=== PATIENT | female | born 1975 | race Caucasian/White ===

== ENCOUNTER 2016-06-30 23:46 | Emergency (ER) | payer OTHER ==
--- NOTE | 2016-07-01 01:53 | ED ---
Zhen Salomon Billy, scribed for Omar Mast MD on 07/01/16 at 0153 . Hypertension - HPI Summary HPI Summary: Patient is a 41 y/o female coming to [facility] for evaluation of one week of hypertension symptoms. Patient states that she has a history of gestational hypertension but has not had symptoms since her first . Today, she felt burning chest pain radiating to her left arm. She has no other symptoms at this time. - History of Current Complaint Chief Complaint: EDHypertension Stated Complaint: HIGH BLOOD PRESSURE [id number] Time Seen by Provider: 07/01/16 01:42 Hx Obtained From: Patient Onset/Duration: Started Hours Ago, Still Present Timing: Constant Aggravating Factor(s): Nothing Alleviating Factor(s): Nothing Associated Signs & Symptoms: Chest Pain - Allergies/Home Medications Allergies/Adverse Reactions: Allergies Allergy/AdvReac Type Severity Reaction Status Date / Time No Known Allergies Allergy Verified 06/30/16 23:55 PMH/Surg Hx/FS Hx/Imm Hx Endocrine/Hematology History: Denies: Hx Diabetes Cardiovascular History: Reports: Hx Hypertension - gestational hypertension Denies: Hx Myocardial Infarction History: Reports: Other Problems/Disorders - Ovarian cysts Infectious Disease History: No Infectious Disease History: Denies: Traveled Outside the [place] in Last 30 Days - Family History Known Family History: Positive: Hypertension - Social History Alcohol Use: None Hx Substance Use: No Substance Use Type: Reports: None Hx Tobacco Use: No Smoking Status (MU): Never Smoked Tobacco Review of Systems Negative: Fever Positive: Chest Pain, Other - hypertension All Other Systems Reviewed And Are Negative: Yes Physical Exam Triage Information Reviewed: Yes Vital Signs On Initial Exam: Initial Vitals Temp Pulse Resp BP Pulse Ox 98 F 83 18 162/85 100 06/30/16 23:53 06/30/16 23:53 06/30/16 23:53 06/30/16 23:53 06/30/16 23:53 Vital Signs Reviewed: Yes Appearance: Positive: Well-Appearing, No Pain Distress Skin: Positive: Warm Head/Face: Positive: Normal Head/Face Inspection Eyes: Positive: HUGO ENT: Positive: Hearing grossly normal Neck: Positive: Supple Respiratory/Lung Sounds: Positive: Clear to Auscultation, Breath Sounds Present Cardiovascular: Positive: RRR Abdomen Description: Positive: Nontender, Soft Bowel Sounds: Positive: Present Musculoskeletal: Positive: Strength/ROM Intact Neurological: Positive: Sensory/Motor Intact, Alert, Oriented to Person Place, Time, NV Bundle Intact Distally Psychiatric: Positive: Affect/Mood Appropriate Diagnostics - Vital Signs Vital Signs Temp Pulse Resp BP Pulse Ox 06/30/16 23:53 98 F 83 18 162/85 100 - Laboratory Result Diagrams: 07/01/16 02:05 07/01/16 01:46 Lab Statement: Any lab studies that have been ordered have been reviewed, and results considered in the medical decision making process. - EKG 0159 EKG Interpretation: NSR 68 bpm, no ST elevation Hypertension Course/Dx - Diagnoses Provider Diagnoses: Hypertension Discharge - Discharge Plan Condition: Stable Disposition: HOME Patient Education Materials: Hypertension (ED) Referrals: Adam Mena MD [Primary Care Provider] - The documentation as recorded by the Zhen peoples Billy accurately reflects the service I personally performed and the decisions made by , Omar Mast MD.
[2016-07-01 02:20] LABS: Hematocrit 44 % (35-47); Hemoglobin 15.1 g/dl (12.0-16.0); Mean Corpuscular HGB Conc 35 g/dl (31-36); Mean Corpuscular Hemoglobin 30 pg (27-31); Mean Corpuscular Volume 85 fL (80-97); Mean Platelet Volume 7 um3 (7.4-10.4); Red Cell Distribution Width 13 % (10.5-15); White Blood Count 12.9 10^3/ul (3.5-10.8)
[2016-07-01 02:32] LABS: Albumin 4.3 g/dL (3.2-5.2); BUN/Creatinine Ratio 18.9 (8-20); Calcium 9.5 mg/dL (8.6-10.3); EGFR African American 89.2 (>60); EGFR Non-African American 69.3 (>60); Potassium 3.7 mmol/L (3.5-5.0); Total Bilirubin 0.8 mg/dL (0.2-1.0); Total Protein 7.3 g/dL (6.4-8.9)
[2016-07-01 04:05] VITALS: BP 145/77
== END 2016-07-01 04:05 | disposition home or self-care (01) ==
LOC: ED 23:46
DX: I10 Essential (primary) hypertension (principal); R07.9 Chest pain, unspecified
CPT/HCPCS: 36415; 80053; 84484; 85025; 93005; 99283

== ENCOUNTER 2016-07-21 16:12 | Emergency (ER) | payer OTHER ==
[2016-07-21] MEDS ORDERED: Aspirin Low Dose CHEW TAB* 81 MG PO ONE (16:31)
--- NOTE | 2016-07-21 17:04 | RAD ---
Indication: Chest pain. Single frontal view of the chest performed at 1642 hours was reviewed. No prior study is available for comparison. No mediastinal shift is noted. Heart is of normal size and configuration. Lung lawrence appear clear. IMPRESSION: NO ACTIVE CARDIOPULMONARY DISEASE IS NOTED.
[2016-07-21 17:39] LABS: Hematocrit 45 % (35-47); Hemoglobin 15.6 g/dl (12.0-16.0); Mean Corpuscular HGB Conc 35 g/dl (31-36); Mean Corpuscular Hemoglobin 30 pg (27-31); Mean Corpuscular Volume 86 fL (80-97); Mean Platelet Volume 7 um3 (7.4-10.4); Red Blood Count 5.19 10^6/ul (4.0-5.4); Red Cell Distribution Width 13 % (10.5-15); White Blood Count 9.1 10^3/ul (3.5-10.8)
[2016-07-21 17:55] LABS: ALT 17 U/L (7-52); AST 15 U/L (13-39); Albumin 4.4 g/dL (3.2-5.2); Alkaline Phosphatase 48 U/L (34-104); Anion Gap 7 mmol/L (2-11); BUN/Creatinine Ratio 16.5 (8-20); Blood Urea Nitrogen 15 mg/dL (6-24); CO2 Carbon Dioxide 25 mmol/L (22-32); Calcium 9.5 mg/dL (8.6-10.3); Chloride 104 mmol/L (101-111); Creatine Kinase 88 U/L (10-223); EGFR African American 88.1 (>60); EGFR Non-African American 68.5 (>60); Globulin 3.3 g/dL (2-4); Glucose 109 mg/dL (70-100); Magnesium 2.3 mg/dL (1.9-2.7); Potassium 3.7 mmol/L (3.5-5.0); Sodium 136 mmol/L (133-145); Total Protein 7.7 g/dL (6.4-8.9)
[2016-07-21 18:04] LABS: TSH (Thyroid Stimulating Horm) 0.74 mcIU/mL (0.34-5.60)
[2016-07-21] MEDS ORDERED: Ketorolac INJ* 30 MG/ML 1 ML VIAL IV PUSH ONE (18:18)
[2016-07-21 19:06] VITALS: BP 119/68
--- NOTE | 2016-07-22 08:51 | ED ---
Carlie Salomon Matthew, scribed for Ernesto Johnson MD on 07/21/16 at 1805 . HPI Chest Pain - HPI Summary HPI Summary: A 41 y/o female presents to the ED with chest pain for the past week. The pain is described as tightness and rated 8/10 in severity. She's also having intermittent left arm pain that is described as sharp. The chest tightness is worse with exertion. She denies any SOB. The patient recently started a medication for HTN and the symptoms started afterwards, so she was started on a different medications, but continues to have the chest tightness. FHx of AFib. The patient does not smoke, no alcohol, and no drug use. - History of Current Complaint Chief Complaint: EDChestPainROMI Time Seen by Provider: 07/21/16 16:31 Hx Obtained From: Patient Onset/Duration: Started Weeks Ago, Atraumatic, Still Present Timing: Constant Initial Severity: Moderate Current Severity: Moderate Pain Intensity: 8 Pain Scale Used: 0-10 Numeric Chest Pain Location: Left Lateral Character: Tightness Aggravating Factor(s): Exertion Associated Signs and Symptoms: Positive: Other: - left arm pain. Negative: Shortness of Breath - Allergy/Home Medications Allergies/Adverse Reactions: Allergies Allergy/AdvReac Type Severity Reaction Status Date / Time No Known Allergies Allergy Verified 06/30/16 23:55 PMH/Surg Hx/FS Hx/Imm Hx Endocrine/Hematology History: Denies: Hx Diabetes Cardiovascular History: Reports: Hx Hypertension - gestational hypertension Denies: Hx Myocardial Infarction History: Reports: Other Problems/Disorders - Ovarian cysts Infectious Disease History: Denies: Traveled Outside the [place] in Last 30 Days - Family History Known Family History: Positive: Hypertension Family History: FHx of AFib - Social History Alcohol Use: None Hx Substance Use: No Substance Use Type: Reports: None Hx Tobacco Use: No Smoking Status (MU): Never Smoked Tobacco Review of Systems Constitutional: Negative Eyes: Negative ENT: Negative Positive: Chest Pain Respiratory: Negative Negative: Shortness Of Breath Gastrointestinal: Negative Genitourinary: Negative Positive: Myalgia - left arm pain described as sharp Neurological: Negative Psychological: Normal All Other Systems Reviewed And Are Negative: Yes Physical Exam - Summary Physical Exam Summary: VITAL SIGNS: Reviewed. GENERAL: Patient is a well developed and nourished female who is lying comfortable in the stretcher. Patient is not in any acute respiratory distress. HEAD AND FACE: No signs of trauma. No ecchymosis, hematomas or skull depressions. No sinus tenderness. EYES: PERRLA, EOMI x 2, No injected conjunctiva, no nystagmus. EARS: Hearing grossly intact. Ear canals and tympanic membranes are within normal limits. MOUTH: Oropharynx within normal limits. NECK: Supple, trachea is midline, no adenopathy, no JVD, no carotid bruit, no c- spine tenderness, neck with full ROM. CHEST: Symmetric, no tenderness at palpation LUNGS: Clear to auscultation bilaterally. No wheezing or crackles. CVS: Regular rate and rhythm, S1 and S2 present, no murmurs or gallops appreciated. ABDOMEN: Soft, non-tender. No signs of distention. No rebound no guarding, and no masses palpated. Bowel sounds are normal. EXTREMITIES: FROM in all major joints, no edema, no cyanosis or clubbing. NEURO: Alert and oriented x 3. No acute neurological deficits. Speech is normal and follows commands. SKIN: Dry and warm Triage Information Reviewed: Yes Vital Signs On Initial Exam: Initial Vitals Temp Pulse Resp BP Pulse Ox 98.3 F 98 18 157/88 100 07/21/16 16:15 07/21/16 16:15 07/21/16 16:15 07/21/16 16:15 07/21/16 16:15 Vital Signs Reviewed: Yes Diagnostics - Vital Signs Vital Signs Temp Pulse Resp BP Pulse Ox 07/21/16 16:15 98.3 F 98 18 157/88 100 - Laboratory Lab Results: Lab Results 07/21/16 07/21/16 07/21/16 Range/Units 17:15 17:15 17:15 WBC 9.1 (3.5-10.8) 10^3/ul RBC 5.19 (4.0-5.4) 10^6/ul Hgb 15.6 (12.0-16.0) g/dl Hct 45 (35-47) % MCV 86 (80-97) fL MCH 30 (27-31) pg MCHC 35 (31-36) g/dl RDW 13 (10.5-15) % Plt Count 231 (150-450) 10^3/ul MPV 7 L (7.4-10.4) um3 Neut % (Auto) 75.0 (38-83) % Lymph % (Auto) 18.4 L (25-47) % [place] % (Auto) 5.0 (1-9) % Eos % (Auto) 1.2 (0-6) % Baso % (Auto) 0.4 (0-2) % Absolute Neuts (auto) 6.8 (1.5-7.7) 10^3/ul Absolute Lymphs (auto) 1.7 (1.0-4.8) 10^3/ul Absolute Monos (auto) 0.5 (0-0.8) 10^3/ul Absolute Eos (auto) 0.1 (0-0.6) 10^3/ul Absolute Basos (auto) 0 (0-0.2) 10^3/ul Absolute Nucleated RBC 0.01 10^3/ul Nucleated RBC % 0.1 D-Dimer, Quantitative (Less Than 230) ng/mL Sodium 136 (133-145) mmol/L Potassium 3.7 (3.5-5.0) mmol/L Chloride 104 (101-111) mmol/L Carbon Dioxide 25 (22-32) mmol/L Anion Gap 7 (2-11) mmol/L BUN 15 (6-24) mg/dL Creatinine 0.91 (0.51-0.95) mg/dL Est GFR ( Amer) 88.1 (>60) Est GFR (Non-Af Amer) 68.5 (>60) BUN/Creatinine Ratio 16.5 (8-20) Glucose 109 H (70-100) mg/dL Lactic Acid 1.0 (0.5-2.0) mmol/L Calcium 9.5 (8.6-10.3) mg/dL Magnesium 2.3 (1.9-2.7) mg/dL Total Bilirubin 0.70 (0.2-1.0) mg/dL AST 15 (13-39) U/L ALT 17 (7-52) U/L Alkaline Phosphatase 48 (34-104) U/L Total Creatine Kinase 88 (10-223) U/L CK-MB (CK-2) 1.5 (0.6-6.3) ng/mL Troponin I 0.00 (<0.04) ng/mL B-Natriuretic Peptide ( - 100) pg/mL Total Protein 7.7 (6.4-8.9) g/dL Albumin 4.4 (3.2-5.2) g/dL Globulin 3.3 (2-4) g/dL Albumin/Globulin Ratio 1.3 (1-3) TSH 0.74 (0.34-5.60) mcIU/mL Beta HCG, Quant < 0.60 mIU/mL 07/21/16 07/21/16 Range/Units 17:15 17:15 WBC (3.5-10.8) 10^3/ul RBC (4.0-5.4) 10^6/ul Hgb (12.0-16.0) g/dl Hct (35-47) % MCV (80-97) fL MCH (27-31) pg MCHC (31-36) g/dl RDW (10.5-15) % Plt Count (150-450) 10^3/ul MPV (7.4-10.4) um3 Neut % (Auto) (38-83) % Lymph % (Auto) (25-47) % [place] % (Auto) (1-9) % Eos % (Auto) (0-6) % Baso % (Auto) (0-2) % Absolute Neuts (auto) (1.5-7.7) 10^3/ul Absolute Lymphs (auto) (1.0-4.8) 10^3/ul Absolute Monos (auto) (0-0.8) 10^3/ul Absolute Eos (auto) (0-0.6) 10^3/ul Absolute Basos (auto) (0-0.2) 10^3/ul Absolute Nucleated RBC 10^3/ul Nucleated RBC % D-Dimer, Quantitative < 200 (Less Than 230) ng/mL Sodium (133-145) mmol/L Potassium (3.5-5.0) mmol/L Chloride (101-111) mmol/L Carbon Dioxide (22-32) mmol/L Anion Gap (2-11) mmol/L BUN (6-24) mg/dL Creatinine (0.51-0.95) mg/dL Est GFR ( Amer) (>60) Est GFR (Non-Af Amer) (>60) BUN/Creatinine Ratio (8-20) Glucose (70-100) mg/dL Lactic Acid (0.5-2.0) mmol/L Calcium (8.6-10.3) mg/dL Magnesium (1.9-2.7) mg/dL Total Bilirubin (0.2-1.0) mg/dL AST (13-39) U/L ALT (7-52) U/L Alkaline Phosphatase (34-104) U/L Total Creatine Kinase (10-223) U/L CK-MB (CK-2) (0.6-6.3) ng/mL Troponin I (<0.04) ng/mL B-Natriuretic Peptide 42 ( - 100) pg/mL Total Protein (6.4-8.9) g/dL Albumin (3.2-5.2) g/dL Globulin (2-4) g/dL Albumin/Globulin Ratio (1-3) TSH (0.34-5.60) mcIU/mL Beta HCG, Quant mIU/mL Result Diagrams: 07/21/16 17:15 07/21/16 17:15 Lab Statement: Any lab studies that have been ordered have been reviewed, and results considered in the medical decision making process. - Radiology CXR Xray Interpretation: No Acute Changes - IMPRESSION: NO ACTIVE CARDIOPULMONARY DISEASE IS NOTED. Radiology Interpretation Completed By: Radiologist - EKG 16:20 Cardiac Rate: NL - 70 bpm EKG Rhythm: Sinus Rhythm EKG Interpretation: No ST elevation; T-Wave Inversion in III EKG Comparison: No Significant Change - 07/01/16 Chest Pain Course/Dx - Course Assessment/Plan: A 41 y/o female presents to the ED with chest pain for the past week. The pain is described as tightness and rated 8/10 in severity. She's also having intermittent left arm pain that is described as sharp. The chest tightness is worse with exertion. She denies any SOB. The patient recently started a medication for HTN and the symptoms started afterwards, so she was started on a different medications, but continues to have the chest tightness. FHx of AFib. The patient does not smoke, no alcohol, and no drug use. CBC WNL, CMP WNL except Glucose of 109. Troponin is 0.0. D-Dimer is less than 200. CXR shows no active cardiopulmonary disease. EKG shows sinus rhythm without ST elevation. Patient has a T-Wave inversion in III and similar to EKG on 07/01/16. The patient was given Toradol for the pain. The patient doesnt have any co- morbidity, and the pain is atypical. Therefore, I believe the patient has low suspicion for ACS. The patient is not tachycardiac or hypoxic so I have no suspicion for PE since the d-dimer is less than 200 as well. The patient will be discharged home to follow-up with her PCP. She is A&Ox3 and hemodynamically stable. I discussed all the findings and test results with the patient. Patient was instructed to return to the emergency room immediately if any of the symptoms return or worsens. Plan of care was discussed with the patient and understands and agrees. All questions were answered at patient satisfaction. There were no further complaints or concerns. Lung exam before discharge: CTA B /L. Good air exchange. No wheezing or crackles heard. CVS: S1 and S2 present. No murmurs appreciated. Patient is alert and oriented x 3. Patient is hemodynamically stable. Patient will be discharged home with follow up PCP in the next 2-3 days - Chest Pain Differential Diagnosis/HQI/PQRI: Acute ND, ACS, Angina, CHF, Chest Wall, GI Disease, Lower Respiratory Infection - Diagnoses Provider Diagnoses: Chest pain, atypical Discharge - Discharge Plan Condition: Stable Disposition: HOME Patient Education Materials: Chest Pain (ED) Referrals: King Williamson MD [Primary Care Provider] - 3 Days Additional Instructions: Please follow-up with your primary care physician. The documentation as recorded by the Carlie peoples Matthew accurately reflects the service I personally performed and the decisions made by , Ernesto Johnson MD.
== END 2016-07-21 19:00 | disposition home or self-care (01) ==
LOC: ED 16:12
DX: R07.89 Other chest pain (principal)
CPT/HCPCS: 36415; 71010; 80053; 82550; 82553; 83605; 83735; 83880; 84443; 84484; 84702; 85025; 85379; 93005; 99283; A9270-GY; J1885

== ENCOUNTER 2016-08-10 03:45 | Emergency (ER) | payer OTHER ==
[2016-08-10 04:45] LABS: Hematocrit 41 % (35-47); Hemoglobin 14.4 g/dl (12.0-16.0); Mean Corpuscular HGB Conc 35 g/dl (31-36); Mean Corpuscular Hemoglobin 30 pg (27-31); Mean Corpuscular Volume 86 fL (80-97); Mean Platelet Volume 7 um3 (7.4-10.4); Red Cell Distribution Width 13 % (10.5-15); White Blood Count 6.4 10^3/ul (3.5-10.8)
[2016-08-10 04:58] LABS: ALT 15 U/L (7-52); AST 13 U/L (13-39); Albumin 4.1 g/dL (3.2-5.2); Alkaline Phosphatase 42 U/L (34-104); Anion Gap 9 mmol/L (2-11); BUN/Creatinine Ratio 19.3 (8-20); Blood Urea Nitrogen 17 mg/dL (6-24); CO2 Carbon Dioxide 21 mmol/L (22-32); Calcium 9.4 mg/dL (8.6-10.3); Chloride 108 mmol/L (101-111); EGFR African American 91.5 (>60); EGFR Non-African American 71.2 (>60); Globulin 2.9 g/dL (2-4); Glucose 112 mg/dL (70-100); Potassium 3.1 mmol/L (3.5-5.0); Sodium 138 mmol/L (133-145)
[2016-08-10 05:30] LABS: TSH (Thyroid Stimulating Horm) 0.97 mcIU/mL (0.34-5.60)
[2016-08-10 06:32] VITALS: BP 111/68
--- NOTE | 2016-08-10 06:49 | ED ---
Willie Salomon Alok, scribed for Jerry Alves on 08/10/16 at 0417 . HPI Chest Pain - HPI Summary HPI Summary: 41 y/o female presents to the ED for CP accompanied by nausea, shaking, and facial numbness. Pt states that what began as CP earlier in the day progressed to nausea and shaking after using the bathroom. Pt states her symptoms have improved now. Pt adds similar symptoms occurring one week ago consisting of CP and nausea which was improved with food. PMHx includes thyroid issues still under investigation. Pt does not take any medications and denies tobacco/ETOH. FMHx includes a mother with irregular heart rhythm. - History of Current Complaint Chief Complaint: EDChestPainROMI Time Seen by Provider: 08/10/16 03:56 Hx Obtained From: Patient Onset/Duration: Started Hours Ago, Atraumatic Initial Severity: Moderate Pain Intensity: 0 Pain Scale Used: 0-10 Numeric Associated Signs and Symptoms: Positive: Chest Pain, Nausea, Other: - shaking - Allergy/Home Medications Allergies/Adverse Reactions: Allergies Allergy/AdvReac Type Severity Reaction Status Date / Time No Known Allergies Allergy Verified 06/30/16 23:55 PMH/Surg Hx/FS Hx/Imm Hx Endocrine/Hematology History: Denies: Hx Diabetes Cardiovascular History: Reports: Hx Hypertension - gestational hypertension Denies: Hx Myocardial Infarction History: Reports: Other Problems/Disorders - Ovarian cysts Infectious Disease History: No Infectious Disease History: Reports: Traveled Outside the [place] in Last 30 Days - Family History Known Family History: Positive: Hypertension Family History: FHx of AFib - Social History Lives: With Family Alcohol Use: None Hx Substance Use: No Substance Use Type: Reports: None Hx Tobacco Use: No Smoking Status (MU): Never Smoked Tobacco Review of Systems Negative: Fever Positive: Chest Pain Positive: Nausea Positive: Other - Shaking Positive: Numbness - facial All Other Systems Reviewed And Are Negative: Yes Physical Exam Triage Information Reviewed: Yes Vital Signs On Initial Exam: Initial Vitals Temp Pulse Resp BP Pulse Ox 98.8 F 77 18 133/78 99 08/10/16 03:55 08/10/16 03:55 08/10/16 03:55 08/10/16 03:55 08/10/16 03:55 Vital Signs Reviewed: Yes Appearance: Positive: Well-Appearing, No Pain Distress Skin: Positive: Warm, Skin Color Reflects Adequate Perfusion, Dry Head/Face: Positive: Normal Head/Face Inspection Eyes: Positive: EOMI, HUGO ENT: Positive: Normal ENT inspection Neck: Positive: Supple, Nontender Respiratory/Lung Sounds: Positive: Clear to Auscultation, Breath Sounds Present Cardiovascular: Positive: RRR, Pulses are Symmetrical in both Upper and Lower Extremities Abdomen Description: Positive: Nontender, Soft Bowel Sounds: Positive: Present Musculoskeletal: Positive: Normal, Strength/ROM Intact Neurological: Positive: Normal, Sensory/Motor Intact, Alert, Oriented to Person Place, Time Diagnostics - Vital Signs Vital Signs Temp Pulse Resp BP Pulse Ox 08/10/16 03:55 98.8 F 77 18 133/78 99 - Laboratory Result Diagrams: 08/10/16 04:30 08/10/16 04:30 Lab Statement: Any lab studies that have been ordered have been reviewed, and results considered in the medical decision making process. - Radiology CXR Xray Interpretation: Positive (See Comments) - No infiltrates or effusions Radiology Interpretation Completed By: Radiologist - EKG 0407 Cardiac Rate: NL - 66 bpm EKG Rhythm: Sinus Rhythm EKG Interpretation: No acute changes Chest Pain Course/Dx - Course Course Of Treatment: Pt came with CP and an anxiety attack earlier today. Labs and XRAY within nml limits. Will discharge pt home with recommendation to FU with PCP. - Diagnoses Provider Diagnoses: Chest pain, Anxiety Discharge - Discharge Plan Condition: Stable Disposition: HOME Patient Education Materials: Chest Pain (ED) Referrals: King Williamson MD [Primary Care Provider] - Additional Instructions: Please follow up with your primary care provider in the next three days. The documentation as recorded by the Willie peoples Alok accurately reflects the service I personally performed and the decisions made by , Jerry Alves.
--- NOTE | 2016-08-10 08:21 | RAD ---
INDICATION: Chest pain. COMPARISON: Comparison is made with a prior chest x-ray study from July 21, 2016. TECHNIQUE: Dual-energy PA and lateral views of the chest were obtained. FINDINGS: The heart is within normal limits in size. Mediastinal and hilar contours appear within normal limits. The lungs are clear. No pleural effusion is present. IMPRESSION: NO EVIDENCE FOR ACTIVE CARDIOPULMONARY DISEASE.
== END 2016-08-10 06:32 | disposition home or self-care (01) ==
LOC: ED 03:45
DX: R07.89 Other chest pain (principal); F41.9 Anxiety disorder, unspecified; R11.0 Nausea; R20.0 Anesthesia of skin; Z32.02 Encounter for pregnancy test, result negative
CPT/HCPCS: 36415; 71020; 80053; 83880; 84443; 84484; 84702; 85025; 85379; 85610; 85730; 93005; 99283

== ENCOUNTER 2017-11-06 19:28 | Emergency (ER) | payer OTHER ==
--- OUTSIDE RECORDS SUMMARY | 2017-11-06 19:34 | XMS REPORT ---
:1975 External Reference #:[id number] Author Organization [facility] Address [address] [address] [place] [address] Phone [phone] Care Team Providers Name Role Phone King Williamson MD Primary Care Physician Unavailable Payers Type Date Identification Numbers Payment Provider Subscriber Commercial Policy Number: [id number] [employer] Number: [id number] [id number] PayID: [id number] [place] [address] Advance Directives Type Date Description Status Comment Other Directive 10/16/2017 Health Care Proxy Current and Verified Problems Date Description Provider Status Onset: 07/06/2016 Essential hypertension King Williamson M.D. Active Onset: 08/14/2016 Non-toxic nodular goiter King Williamson M.D. Active Onset: 08/14/2016 Panic disorder without agoraphobia King Williamson M.D. Active Onset: 08/21/2016 Insomnia King Williamson M.D. 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 ETOH Use Denies alcohol use Smoking Patient has never smoked Recreational Drug Use Denies Drug Use Allergies, Adverse Reactions, Alerts Date Description Reaction Status Severity Comments 07/19/2016 Metoprolol mouth ulcers/chest active Moderate to Severe tightness 07/06/2016 NKDA inactive Medications Medication Date Status Form Strength Qnty SIG Indications Ordering Provider Naproxen 11/06/ Active Tablets 500mg 60tabs 1 by M25.561 Campos 2018 mouth F twice a Alex, day as MD needed pain Sertraline HCL 06/20/ Active Tablets 100mg 30tabs 1 by F41.0 King 2017 mouth Pachikara every day , MScooter Sertraline HCL 09/06/ Active Tablets 50mg 30tabs 1 by F41.0 King 2016 mouth Pachikara every day , MTaylorDTaylor Alprazolam 08/21/ Active Tablets 0.25mg 30tabs one by F41.0 King 2017 Dispers mouth at Clay travis M.D. bedtime Zolpidem 08/18/ Active Tablets 10mg 14tabs 1/2 to 1 King Tartrate 2017 tab by Clay bland M.D. every night at bedtime as needed Sertraline HCL 08/14/ Hx Tablets 25mg 30tabs 1 by F41.0 King 2017 - mouth Pachikara 09/06/ every day , MScooter 2017 x 1 week then 2 tab daily Losartan 07/19/ Hx Tablets 25mg 30tabs 1 by I10 King Potassium 2017 - mouth Pachikara 09/06/ once a , MTaylorDTaylor 2016 day Metoprolol 07/12/ Hx Tablets 25mg 60tabs 1 by I10 King Tartrate 2017 - mouth Pachikara 07/19/ twice a , MTaylorDTaylor 2016 day Rhinocort / Hx Suspension 32mcg/Act 2 Sprays Unknown Allergy 0000 - each 11/05/ nostil qd 2017 3-4 times weekly Multivitamin / Hx Tablets 1 by Unknown Adult 0000 - mouth 11/05/ every day 2018 Vital Signs Date Vital Result Comment 11/06/2017 Height 62 inches 5'2" Weight 174.50 lb Heart Rate 88 /min BP Systolic Sitting 126 mmHg BP Diastolic Sitting 76 mmHg Respiratory Rate 16 /min Body Temperature 99.3 F BMI (Body Mass Index) 31.9 kg/m2 08/08/2017 Height 63 inches 5'3" Weight 170.00 lb Heart Rate 88 /min BP Systolic 130 mmHg BP Diastolic 70 mmHg O2 % BldC Oximetry 97 % BMI (Body Mass Index) 30.1 kg/m2 06/20/2017 Height 63 inches 5'3" Weight 170.25 lb Heart Rate 84 /min BP Systolic Sitting 130 mmHg BP Diastolic Sitting 80 mmHg O2 % BldC Oximetry 98 % BMI (Body Mass Index) 30.2 kg/m2 01/31/2017 Height 63 inches 5'3" Weight 168.50 lb Heart Rate 76 /min BP Systolic 126 mmHg BP Diastolic 70 mmHg O2 % BldC Oximetry 97 % BMI (Body Mass Index) 29.8 kg/m2 10/25/2016 Height 63 inches 5'3" Weight 161.00 lb Heart Rate 71 /min BP Systolic Sitting 130 mmHg BP Diastolic Sitting 78 mmHg Body Temperature 98.5 F O2 % BldC Oximetry 99 % BMI (Body Mass Index) 28.5 kg/m2 09/06/2016 Weight 156.25 lb Heart Rate 100 /min BP Systolic 120 mmHg BP Diastolic 80 mmHg Body Temperature 98.3 F O2 % BldC Oximetry 98 % 08/21/2016 Weight 160.25 lb Heart Rate 85 /min BP Systolic Sitting 156 mmHg BP Diastolic Sitting 88 mmHg Body Temperature 98.1 F O2 % BldC Oximetry 98 % 08/14/2016 Weight 164.12 lb Heart Rate 118 /min BP Systolic Sitting 158 mmHg BP Diastolic Sitting 94 mmHg Body Temperature 97.7 F O2 % BldC Oximetry 97 % 07/19/2016 Weight 169.00 lb Heart Rate 80 /min BP Systolic 144 mmHg BP Diastolic 88 mmHg O2 % BldC Oximetry 99 % 07/12/2016 Weight 170.00 lb Heart Rate 106 /min BP Systolic Sitting 158 mmHg BP Diastolic Sitting 80 mmHg Body Temperature 98.5 F O2 % BldC Oximetry 98 % 07/06/2016 Height 62.5 inches 5'2.50" Weight 170.12 lb Heart Rate 96 /min BP Systolic Sitting 158 mmHg BP Diastolic Sitting 98 mmHg Body Temperature 98.8 F O2 % BldC Oximetry 98 % BMI (Body Mass Index) 30.6 kg/m2 Results Test Date Test Result H/L Range Note Laboratory test finding 10/15/2017 Thyroperoxidase AB 1.25 IU/mL <9 Thyroglobulin AB <1.8 IU/mL <4.0 1 TSH (Thyroid Stim Horm) 1.32 mcIU/mL 0.34-5.60 Laboratory test finding 08/15/2016 Thyroperoxidase AB 1.34 IU/mL <9 Thyroglobulin AB <1.8 IU/mL <4.0 2 CBC Auto Diff 08/10/2016 White Blood Count 6.4 10^3/uL 3.5-10.8 Red Blood Count 4.80 10^6/uL 4.0-5.4 Hemoglobin 14.4 g/dL 12.0-16.0 Hematocrit 41 % 35-47 Mean Corpuscular Volume 86 fL 80-97 Mean Corpuscular Hemoglobin 30 pg 27-31 Mean Corpuscular HGB Conc 35 g/dL 31-36 Red Cell Distribution Width 13 % 10.5-15 Platelet Count 204 10^3/uL 150-450 Mean Platelet Volume 7 um3 Low 7.4-10.4 Abs Neutrophils 4.0 10^3/uL 1.5-7.7 Abs Lymphocytes 1.7 10^3/uL 1.0-4.8 Abs Monocytes 0.4 10^3/uL 0-0.8 Abs Eosinophils 0.2 10^3/uL 0-0.6 Abs Basophils 0 10^3/uL 0-0.2 Abs Nucleated RBC 0.01 10^3/uL Granulocyte % 62.9 % 38-83 Lymphocyte % 26.8 % 25-47 Monocyte % 6.5 % 1-9 Eosinophil % 3.1 % 0-6 Basophil % 0.7 % 0-2 Nucleated Red Blood Cells % 0.1 Inr/Protime 08/10/2016 Inr 0.96 0.89-1.11 Laboratory test finding 08/10/2016 Partial Thrombo Time 29.1 seconds 26.0 -36.3 PTT D Dimer Quantitative < 200 ng/mL Less Than 230 3 B-Type Natriuretic Peptide BNP 28 pg/mL 4 Comp Metabolic Panel 08/10/2016 Sodium 138 mmol/L 133-145 Potassium 3.1 mmol/L Low 3.5-5.0 Chloride 108 mmol/L 101-111 Co2 Carbon Dioxide 21 mmol/L Low 22-32 Anion Gap 9 mmol/L 2-11 Glucose 112 mg/dL High 70-100 Blood Urea Nitrogen 17 mg/dL 6-24 Creatinine 0.88 mg/dL 0.51-0.95 BUN/Creatinine Ratio 19.3 8-20 Calcium 9.4 mg/dL 8.6-10.3 Total Protein 7.0 g/dL 6.4-8.9 Albumin 4.1 g/dL 3.2-5.2 Globulin 2.9 g/dL 2-4 Albumin/Globulin Ratio 1.4 1-3 Total Bilirubin 0.80 mg/dL 0.2-1.0 Alkaline Phosphatase 42 U/L 34-104 Alt 15 U/L 7-52 Ast 13 U/L 13-39 Egfr Non- 71.2 >60 Egfr 91.5 >60 5 Laboratory test finding 08/10/2016 Troponin-I (TnI) 0.00 ng/mL <0.04 6 HCG < 0.60 mIU/mL 7 TSH (Thyroid Stim Horm) 0.97 mcIU/mL 0.34-5.60 Laboratory test finding 07/21/2016 HCG < 0.60 mIU/mL 8 TSH (Thyroid Stim Horm) 0.74 mcIU/mL 0.34-5.60 Lactic Acid 1.0 mmol/L 0.5-2.0 9 B-Type Natriuretic Peptide BNP 42 pg/mL 10 D Dimer Quantitative < 200 ng/mL Less Than 230 11 CKMB 07/21/2016 CKMB ng/mL 1.5 ng/mL 0.6-6.3 Laboratory test finding 07/21/2016 Magnesium 2.3 mg/dL 1.9-2.7 Creatine Kinase(CK) 88 U/L 10-223 Comp Metabolic Panel 07/21/2016 Sodium 136 mmol/L 133-145 Potassium 3.7 mmol/L 3.5-5.0 Chloride 104 mmol/L 101-111 Co2 Carbon Dioxide 25 mmol/L 22-32 Anion Gap 7 mmol/L 2-11 Glucose 109 mg/dL High 70-100 Blood Urea Nitrogen 15 mg/dL 6-24 Creatinine 0.91 mg/dL 0.51-0.95 BUN/Creatinine Ratio 16.5 8-20 Calcium 9.5 mg/dL 8.6-10.3 Total Protein 7.7 g/dL 6.4-8.9 Albumin 4.4 g/dL 3.2-5.2 Globulin 3.3 g/dL 2-4 Albumin/Globulin Ratio 1.3 1-3 Total Bilirubin 0.70 mg/dL 0.2-1.0 Alkaline Phosphatase 48 U/L 34-104 Alt 17 U/L 7-52 Ast 15 U/L 13-39 Egfr Non- 68.5 >60 Egfr 88.1 >60 12 Laboratory test finding 07/21/2016 Troponin-I (TnI) 0.00 ng/mL <0.04 13 CBC Auto Diff 07/21/2016 White Blood Count 9.1 10^3/uL 3.5-10.8 Red Blood Count 5.19 10^6/uL 4.0-5.4 Hemoglobin 15.6 g/dL 12.0-16.0 Hematocrit 45 % 35-47 Mean Corpuscular Volume 86 fL 80-97 Mean Corpuscular Hemoglobin 30 pg 27-31 Mean Corpuscular HGB Conc 35 g/dL 31-36 Red Cell Distribution Width 13 % 10.5-15 Platelet Count 231 10^3/uL 150-450 Mean Platelet Volume 7 um3 Low 7.4-10.4 Abs Neutrophils 6.8 10^3/uL 1.5-7.7 Abs Lymphocytes 1.7 10^3/uL 1.0-4.8 Abs Monocytes 0.5 10^3/uL 0-0.8 Abs Eosinophils 0.1 10^3/uL 0-0.6 Abs Basophils 0 10^3/uL 0-0.2 Abs Nucleated RBC 0.01 10^3/uL Granulocyte % 75.0 % 38-83 Lymphocyte % 18.4 % Low 25-47 Monocyte % 5.0 % 1-9 Eosinophil % 1.2 % 0-6 Basophil % 0.4 % 0-2 Nucleated Red Blood Cells % 0.1 Lipid Profile (Trig/Chol/HDL) 07/08/2016 Triglycerides 82 mg/dL 14 Cholesterol 150 mg/dL 15 HDL Cholesterol 48.7 mg/dL 16 LDL Cholesterol 85 mg/dL 17 Laboratory test finding 07/08/2016 TSH (Thyroid Stim 0.69 mcIU/mL 0.34- 5.60 18 Horm) CBC Auto Diff 07/01/2016 White Blood Count 12.9 10^3/uL High 3.5-10.8 Red Blood Count 5.10 10^6/uL 4.0-5.4 Hemoglobin 15.1 g/dL 12.0-16.0 Hematocrit 44 % 35-47 Mean Corpuscular Volume 85 fL 80-97 Mean Corpuscular Hemoglobin 30 pg 27-31 Mean Corpuscular HGB Conc 35 g/dL 31-36 Red Cell Distribution Width 13 % 10.5-15 Platelet Count 236 10^3/uL 150-450 Mean Platelet Volume 7 um3 Low 7.4-10.4 Abs Neutrophils 10.6 10^3/uL High 1.5-7.7 Abs Lymphocytes 1.7 10^3/uL 1.0-4.8 Abs Monocytes 0.5 10^3/uL 0-0.8 Abs Eosinophils 0 10^3/uL 0-0.6 Abs Basophils 0.1 10^3/uL 0-0.2 Abs Nucleated RBC 0.01 10^3/uL Granulocyte % 81.9 % 38-83 Lymphocyte % 13.3 % Low 25-47 Monocyte % 4.0 % 1-9 Eosinophil % 0.2 % 0-6 Basophil % 0.6 % 0-2 Nucleated Red Blood Cells % 0.1 Comp Metabolic Panel 07/01/2016 Sodium 136 mmol/L 133-145 Potassium 3.7 mmol/L 3.5-5.0 Chloride 104 mmol/L 101-111 Co2 Carbon Dioxide 25 mmol/L 22-32 Anion Gap 7 mmol/L 2-11 Glucose 113 mg/dL High 70-100 Blood Urea Nitrogen 17 mg/dL 6-24 Creatinine 0.90 mg/dL 0.51-0.95 BUN/Creatinine Ratio 18.9 8-20 Calcium 9.5 mg/dL 8.6-10.3 Total Protein 7.3 g/dL 6.4-8.9 Albumin 4.3 g/dL 3.2-5.2 Globulin 3.0 g/dL 2-4 Albumin/Globulin Ratio 1.4 1-3 Total Bilirubin 0.80 mg/dL 0.2-1.0 Alkaline Phosphatase 48 U/L 34-104 Alt 19 U/L 7-52 Ast 17 U/L 13-39 Egfr Non- 69.3 >60 Egfr 89.2 >60 19 Laboratory test finding 07/01/2016 Troponin-I (TnI) 0.00 ng/mL <0.04 20 1 ADDITIONAL INFORMATION The thyroglobulin antibody testing method is an immunoenzymatic assay manufactured by [employer] and performed on the [employer] DXI 800. Values obtained from different assay methods or kits may be different and cannot be used interchangeably. The results cannot be interpreted as absolute evidence for the presence or absence of malignant disease. Test Performed by: [facility] [address] [place] [address] 2 ADDITIONAL INFORMATION The thyroglobulin antibody testing method is an immunoenzymatic assay manufactured by [employer] and performed on the [employer] DXI 800. Values obtained from different assay methods or kits may be different and cannot be used interchangeably. The results cannot be interpreted as absolute evidence for the presence or absence of malignant disease. Test Performed by: [place] [address] 3 Please note: The following may produce a false positive D Dimer test: - Rheumatoid factor greater than 60 IU/ml - Plasma hemoglobin greater than 0.05 gm/dl - Bilirubin greater than 50 mg/dl - Lipids greater than 1000 mg/dl - FDP greater than 20 ug/ml 4 >100 to <200 pg/mL: likely compensated congestive heart failure (CHF) 200 to 400 pg/mL: likely moderate CHF >400 pg/mL: likely moderate to severe CHF 5 Because ethnic data is not always readily available, this report includes an eGFR for both -Americans and non- Americans. The National Kidney Disease Education Program (NKDEP) does not endorse the use of the MDRD equation for patients that are not between the ages of 18 and 70, are , have extremes of body size, muscle mass, or nutritional status, or are non- or non-. According to the National Kidney Foundation, irrespective of diagnosis, the stage of the disease is based on the level of kidney function: Stage Description GFR(mL/min/1.73 m(2)) 1 Kidney damage with normal or decreased GFR 90 2 Kidney damage with mild decrease in GFR 60-89 3 Moderate decrease in GFR 30-59 4 Severe decrease in GFR 15-29 5 Kidney failure <15 (or dialysis) 6 99th percentile=0.04 ng/mL Troponin results at [facility] and [facility] are not interchangeable. 7 <5.0 Negative 5.0 - 25.0 Indeterminate (Repeat testing recommended after 72 hours) >25.0 Positive Perimenopausal women can display HCG levels of up to 20 mIU/mL 8 <5.0 Negative 5.0 - 25.0 Indeterminate (Repeat testing recommended after 72 hours) >25.0 Positive Perimenopausal women can display HCG levels of up to 20 mIU/mL 9 [facility] Severe Sepsis and Septic Shock Management Bundle Measure requires all lactic acids initially measuring >2.0 mmol/L be repeated. 10 >100 to <200 pg/mL: likely compensated congestive heart failure (CHF) 200 to 400 pg/mL: likely moderate CHF >400 pg/mL: likely moderate to severe CHF 11 Please note: The following may produce a false positive D Dimer test: - Rheumatoid factor greater than 60 IU/ml - Plasma hemoglobin greater than 0.05 gm/dl - Bilirubin greater than 50 mg/dl - Lipids greater than 1000 mg/dl - FDP greater than 20 ug/ml 12 Because ethnic data is not always readily available, this report includes an eGFR for both -Americans and non- Americans. The National Kidney Disease Education Program (NKDEP) does not endorse the use of the MDRD equation for patients that are not between the ages of 18 and 70, are , have extremes of body size, muscle mass, or nutritional status, or are non- or non-. According to the National Kidney Foundation, irrespective of diagnosis, the stage of the disease is based on the level of kidney function: Stage Description GFR(mL/min/1.73 m(2)) 1 Kidney damage with normal or decreased GFR 90 2 Kidney damage with mild decrease in GFR 60-89 3 Moderate decrease in GFR 30-59 4 Severe decrease in GFR 15-29 5 Kidney failure <15 (or dialysis) 13 99th percentile=0.04 ng/mL Troponin results at [facility] and [facility] are not interchangeable. 14 Desirable <150 Borderline high 150-199 High 200-499 Very High >500 15 Desirable <200 Borderline high 200-239 High >239 16 Low <40 Desirable: 40-60 High: >60 17 Desirable: <100 mg/dL Near Optimal: 100-129 mg/dL Borderline High: 130-159 mg/dL High: 160-189 mg/dL Very High: >189 mg/dL 18 FASTING 12 HOUR 19 Because ethnic data is not always readily available, this report includes an eGFR for both -Americans and non- Americans. The National Kidney Disease Education Program (NKDEP) does not endorse the use of the MDRD equation for patients that are not between the ages of 18 and 70, are , have extremes of body size, muscle mass, or nutritional status, or are non- or non-. According to the National Kidney Foundation, irrespective of diagnosis, the stage of the disease is based on the level of kidney function: Stage Description GFR(mL/min/1.73 m(2)) 1 Kidney damage with normal or decreased GFR 90 2 Kidney damage with mild decrease in GFR 60-89 3 Moderate decrease in GFR 30-59 4 Severe decrease in GFR 15-29 5 Kidney failure <15 (or dialysis) 20 99th percentile=0.04 ng/mL Troponin results at [facility] and [facility] are not interchangeable. Procedures Date CPT Code Description Status 11/06/2017 34172 Inject/Drain Joint/Bursa Major W/O US Completed 07/12/2016 Mammogram Completed Encounters Type Date Location Provider CPT E/M Dx Office Visit 10/16/2017 [facility] Internal Medicine King Williamson [address]40 M25.561 2:00p - [place] Marvin Zaragoza.DTaylor Office Visit 08/08/2017 [facility] Internal Medicine King Williamson 16174 E04.9 9:40a - Yuli Fitzpatrick Office Visit 06/20/2017 [facility] Internal Medicine King Williamson 68806 F41.0 4:00p - Yuli Fitzpatrick E04.9 Office Visit 01/31/2017 9:40a [facility] Internal Medicine King Williamson 78658 F41.0 - Yuli Fitzpatrick Office Visit 10/25/2016 11:20a [facility] Internal Medicine King Williamson 43599 F41.0 - [place] M.D. Office Visit 09/06/2016 9:40a [facility] King Williamson 52589 F41.0 [place] Office Visit 08/21/2016 4:20p [facility] Internal Medicine King Williamson 81680 F41.0 - [place] Marvin YoungDTaylor G47.00 Office Visit 08/14/2016 4:20p [facility] Internal King Williamson M.D. 66600 E04.9 Medicine - [address] F41.0 Office Visit 07/19/2016 8:20a [facility] Internal Medicine King Williamson M.D. 45941 I1 - [place] Office Visit 07/12/2016 4:00p [facility] Internal Medicine King Williamson M.D. 44747 I10 - [place] Office Visit 07/06/2016 11:20a [facility] Medicine King Williamson M.D. 01730 I10 - [address] E04.9 Z00.01 Z12.39 Plan of Care Future Appointment(s):12/18/2017 1:30 pm - Campos [facility] MD [facility]12/26/2017 9:40 am - King Williamson M.D. at [facility] Internal Medicine - Tsmnmeqcv49/31/2018 - Campos Johnson, MDM25.561 Pain in right kneeNew Medication:Naproxen 500 mgNew Therapy:Physical TherapyFollow up:Follow up: 6 weeks prnM17.11 Unilateral primary osteoarthritis, right knee
[2017-11-06 19:47] VITALS: BP 153/89
--- NOTE | 2017-11-06 20:19 | UC ---
Knee Pain HPI - HPI Summary HPI Summary: 42 y/o female presents to the urgent care c/o Rt knee pain s/p cortisone injection at 1330pm today. Pt reports she has Hx medial meniscus tear, osteoarthritis and ostheophyte formation in RT knee. Her Orthopedic Dr Johnson applied an Intrarticular Cortisone inj this afternoon for symptoms relief for the first time. However, Around 1600pm today she developed severe Rt knee pain and mild swelling. Pain was like a 10/10. She took Advil 400mg PO around 1530pm and pain decreased to 7/10, specially when she walks or straightens her knee. Pt denies numbness or tingling sensation over the Rt lower leg, calf pain , SOB, chest pain, abdominal pain, N/V/D. - History of Current Complaint Chief Complaint: UCLowerExtremity Stated Complaint: RIGHT KNEE PAIN,SWELLING Time Seen by Provider: 11/06/17 20:17 Hx Obtained From: Patient Hx Last Menstrual Period: 11/05/17 ?: No Onset/Duration: Gradual Onset, Lasting Hours - 4hrs Severity Initially: Severe Severity Currently: Moderate Pain Intensity: 7 Pain Scale Used: 0-10 Numeric Character: Sharp Aggravating Factor(s): Movement, Weight Bearing, Prolonged Standing, Stairs Alleviating Factor(s): Rest, OTC Meds Associated Signs And Symptoms: Positive: Swelling. Negative: Redness, Bruising , Fever, Weakness, Numbness, Tingling Able to Bear Weight: No - Risk Factors Septic Arthritis Risk Factor: Negative Gout Risk Factor: Negative - Allergies/Home Medications Allergies/Adverse Reactions: Allergies Allergy/AdvReac Type Severity Reaction Status Date / Time No Known Allergies Allergy Verified 11/06/17 19:39 Home Medications: Home Medications ALPRAZolam TAB* [Xanax TAB*] 0.25 mg PO Q6H PRN 11/06/17 [History Confirmed ] Sertraline* [Zoloft*] 100 mg PO DAILY 11/06/17 [History Confirmed 11/06/17] PMH/Surg Hx/FS Hx/Imm Hx Previously Healthy: Yes Psychological History: Anxiety, Depression - Surgical History Surgical History: Yes Surgery Procedure, Year, and Place: 2000 - ovarian cyst removal - Family History Known Family History: Positive: Hypertension Family History: FHx of AFib - Social History Occupation: Employed Full-time Lives: With Family Alcohol Use: None Substance Use Type: None Smoking Status (MU): Never Smoked Tobacco Review of Systems Constitutional: Negative Skin: Negative Eyes: Negative ENT: Negative Respiratory: Negative Cardiovascular: Negative Gastrointestinal: Negative Genitourinary: Negative Motor: Negative Neurovascular: Negative Musculoskeletal: Decreased ROM - Rt knee, Other: - RT knee pain s/p cortisone inj Neurological: Negative Psychological: Negative Is Patient Immunocompromised?: No All Other Systems Reviewed And Are Negative: Yes Physical Exam - Summary Physical Exam Summary: Vital Signs Reviewed: Yes General: well developed, well nourished obese female sitting in the examining table w/o any apparent distress Eyes: Positive: Conjunctiva Clear - PERRLA, EOMI, fundi grossly normal ENT: Positive: Normal ENT inspection, Hearing grossly normal, Pharynx normal, TMs normal Neck: Positive: Supple, Nontender, No Lymphadenopathy Respiratory: Positive: Chest nontender, Lungs clear, Normal breath sounds, No respiratory distress Cardiovascular: Positive: RRR, No Murmur, Pulses Normal, Brisk Capillary Refill Abdomen Description: Positive: Nontender, No Organomegaly, Soft. Negative: CVA Tenderness (R), CVA Tenderness (L) Bowel Sounds: Positive: Present Musculoskeletal: Positive: Strength Intact, No Edema, Knee: Pt is able unable bear weight due to pain. No surface trauma, mild soft tissue swelling on medial aspect of RT knee below the patella, site on intra articular injection is on lateral side or Rt knee, no signs of infection or trauma, no redness, ecchymosis or bruising, no obvious effusion. No overlying erythema or warmth. The R knee is without obvious asymmetry or deformity when compared with the L knee. Decreased ROM of R knee due to pain. tenderness to palpation of the patella, no effusion or ballottement. tenderness over the infrapatellar tendon. Point tenderness over the medial joint line, No tenderness over the medial or lateral tibial plateaus. No tenderness over the proximal fibular head , No tenderness, fullness or mass of the popliteal fossa. No quadriceps tenderness. No laxity of the ACL. PCL, MCL, or LCL. no collateral ligament laxity to valgus or varus stress. Maria Esther/Drawer and Elizabeth test unable to perform due to pain. Distal motor and neurovascular status intact. Neurological Exam: Normal Psychological Exam: Normal Skin Exam: Normal Triage Information Reviewed: Yes Vital Signs: Initial Vital Signs Temp 99.0 F 11/06/17 19:41 Pulse 92 11/06/17 19:41 Resp 18 11/06/17 19:41 BP 153/89 11/06/17 19:41 Pulse Ox 100 11/06/17 19:41 Knee Pain Course/Dx - Course Course Of Treatment: 42 y/o female presents to the urgent care c/o Rt knee pain s/p cortisone injection at 1330pm today. Pt reports she has Hx medial meniscus tear, osteoarthritis and ostheophyte formation in RT knee. Her Orthopedic Dr Johnson applied an Intrarticular Cortisone inj this afternoon for symptoms relief for the first time. However, Around 1600pm today she developed severe Rt knee pain and mild swelling. Pain was like a 10/10. She took Advil 400mg PO around 1530pm and pain decreased to 7/10, specially when she walks or straightens her knee. Pt denies numbness or tingling sensation over the Rt lower leg, calf pain, SOB, chest pain, abdominal pain, N/V/D. Hx obtained. Pt w / medial aspect of Rt knee w/ mild swelling and tender to palaption as well as decrease ROM. Pt unable to bear weight on examination. Pt hemodynamically stable w/o any GARCIA or dizziness or flushing which are the common side effects of Cortisone intra articular inj. Pt educated on cortisone inj and Rx Ibuprofen PO for pain, knee immobilized w/ an Bryce-bandage, and given crutches to avoid weight bearing until pain resolves. Strongly advised to f/u w/ Dr Johnson tomorrow if not improvement of symptoms for further management.Pt's BP is elevated today advised to decrease salt in diet, monitor BP and f/u with PCP for further management. Pt undersood and agreed w/ plan of care. - Differential Dx/Diagnosis Differential Diagnosis/HQI/PQRI: Bursitis, Infection, Sprain, Tendonitis, Other - localized allergic reaction Provider Diagnoses: 1- Acute Rt knee pain s/p cortisone injection. 2- Elevated BP w/o Hx of HTN Discharge - Sign-Out/Discharge Documenting (check all that apply): Patient Departure - D/C home - Discharge Plan Condition: Stable Disposition: HOME Prescriptions: Ibuprofen TAB* [Motrin TAB* 800 MG] 800 mg PO Q6H PRN #30 tab PRN Reason: Pain Patient Education Materials: Knee Pain (ED), Low-Sodium Diet (ED) Referrals: Campos Johnson MD [Medical Doctor] - 2 Days King Williamson MD [Primary Care Provider] - 1 Week Additional Instructions: 1-Please take medications after meals as directed to alleviate pain and swelling. 2-Please apply ice, keep your knee immobilized with the bryce bandage, use the crutches to avoid weight bearing until symptoms resolve. 3- Please f/u with your Orthopedic Dr Johnson in 2 days if Cortisone injection is not improving your pain for further management. 4-Your BP is elevated today. It can be your anxiety , but please decrease salt in your diet, monitor BP and if it continues to be elevated please f/u with your PCP for further management Per institutional requirements, I have reviewed the chart, however, I was not consulted specifically or made aware of this patient by the above midlevel provider. I did not personally evaluate, interact with , or disposition this patient. - Billing Disposition and Condition Condition: STABLE Disposition: Home
[2017-11-06] MEDS ORDERED: Ibuprofen TAB* 400 MG PO ONE (20:40)
== END 2017-11-06 20:55 | disposition home or self-care (01) ==
LOC: UCEAST 19:28
DX: M25.561 Pain in right knee (principal); M19.90 Unspecified osteoarthritis, unspecified site; R03.0 Elevated blood-pressure reading, without diagnosis of hypertension; F32.9 Major depressive disorder, single episode, unspecified; F41.9 Anxiety disorder, unspecified; Z79.899 Other long term (current) drug therapy
CPT/HCPCS: 99213; G0463